=== PATIENT | female | born 1990 | race Caucasian/White ===

== ENCOUNTER → 2016-06-18 11:05 | Outpatient (CLI) | payer OTHER ==
[~2016-06-18 11:05] MED LIST: PRENATAL COMPLE1 TAB PO; ZOVIRAX400 MG
== END | disposition home or self-care (01) ==
LOC: D.US 11:05
DX: R60.0 Localized edema (principal)

== ENCOUNTER → 2016-06-25 21:22 | Outpatient (CLI) | payer OTHER ==
[2016-06-25 21:41] LABS: APPEARANCE CLEAR (CLEAR); BILIRUBIN NEGATIVE (NEGATIVE); COLOR YELLOW (YELLOW); GLUCOSE NEGATIVE (NEGATIVE); KETONE NEGATIVE (NEGATIVE); LEUKOCYTE ESTERASE NEGATIVE (NEGATIVE); NITRITE NEGATIVE (NEGATIVE); PROTEIN NEGATIVE (NEGATIVE); UROBILINOGEN NORMAL (NORMAL)
== END | disposition home or self-care (01) ==
LOC: D.LDO 21:22
PROVIDERS: Obstetrics & Gynecology
DX: Z34.83 Encounter for supervision of other normal pregnancy, third trimester (principal); Z3A.31 31 weeks gestation of pregnancy

== ENCOUNTER 2016-08-17 05:11 | Inpatient (IN) | payer OTHER ==
[2016-08-17] VITALS (13 sets, daily range): BP systolic 105–126; BP diastolic 57–69; Ht 139.7 cm; Wt 67.6 kg
[~2016-08-17] VITALS: Ht 139.7 cm; Wt 67.6 kg
--- NOTE | ~2016-08-17 | OP ---
PATIENT NAME: SOUTH OLIVARES MEDICAL RECORD: [id number] :89 LOCATION[facility]78 ADMISSION DATE:08/17/16 SURGEON: FRANCISCO JAVIER TAMAYO MD DATE OF OPERATION: 08/17/2016 PREOPERATIVE DIAGNOSES: 1. History of herpes simplex genital infection. 2. The patient desires elective . POSTOPERATIVE DIAGNOSES: 1. History of herpes simplex genital infection. 2. The patient desires elective . PROCEDURE: A primary low transverse section with vacuum assist. SURGEON: Francisco Javier Tamayo MD ESTIMATED BLOOD LOSS: 1200 cc. INTRAVENOUS FLUIDS: Per anesthesia records. SPECIMENS: Placenta and cord for gases. FINDINGS: 1. Viable infant, Apgars 8 and 8. 2. Placenta delivered manually intact, 3-vessel cord. 3. Grossly normal adnexa bilaterally. PROCEDURE IN DETAIL: The patient was taken to the operating room where spinal anesthesia was achieved without difficulty. The patient was then prepped and draped in normal sterile fashion in the dorsal supine position. A Tomas catheter had been placed and was flowing freely and SCDs were on and functioning normally. The patient was prepped and draped and a Pfannenstiel skin incision was made, extended downward to the underlying subcutaneous fat to the level of the fascia, which was then excised in the midline and extended bilaterally using the Alfonso scissors. The superior and inferior aspects of the fascial incision were grasped with Jesus clamps times 2, tented upward, and sharply dissected from the underlying rectus muscle using the Alfonso scissors and Bovie cautery. At this point, the peritoneum was entered at the superior aspect of the incision using the Metzenbaum scissors. Dissection of the pyramidalis muscle was performed in the midline using the Metzenbaum scissors and the peritoneum was excised bilaterally using the Metzenbaum scissors. A bladder blade was placed into the pelvis and a low transverse incision was made. head was found to be unstable lie. The Kiwi vacuum was attempted to be placed on the occiput; however, inadequate seal was noted due to the amount of fluid on the field. At this point, the external vacuum was then used and placed in the left occiput as was the only portion of the head reachable. Correction of the head flexion was performed and then delivery of the head was performed without traction on the neck. The vacuum was then removed and the infant was delivered atraumatically. Infant was bulb suctioned upon delivery. Cord was clamped times 2, cut, and handed to the awaiting nursery team. Cord was obtained for gases, placenta was removed manually and placenta exteriorized, cleared of all clots and debris and vigorously massaged until good uterine tone was noted. The uterine incision was repaired with 0 loop PDS times 2 with good hemostasis noted. The posterior cul-de-sac was then thoroughly irrigated and OPERATIVE REPORT [id number] [facility] DAY uterus replaced into the pelvis. Anterior cul-de-sac was again irrigated and the uterine incision was found to be hemostatic. Counts were correct times 2. The fascia was then repaired with 0 loop PDS times 1 and the skin repaired in a running subcutaneous fashion using 3-0 Monocryl and Dermabond. The patient tolerated the procedure well, transferred to postanesthesia recovery stable without incident. TRANSINT:[id number] Voice Confirmation ID: [id number] DOCUMENT ID: [id number] FRANCISCO JAVIER TAMAYO MD CC: [id number] DICTATION DATE: 08/17/16837 MOBILE PAINT SPECIALIST: 08/17/16 0900 ADM IN [facility] [address] [place] [address]
[2016-08-17 06:25] LABS: HEMATOCRIT 36.9 % (36.0-48.0); HEMOGLOBIN 12.7 g/dL (12-16); MCH 31.2 pg (26.0-34.0); MCHC 34.4 g/dL (31.0-37.0); MCV 90.7 fL (80.0-100.0); MEAN PLATELET VOLUME 12.4 fL (7.4-10.4); RBC 4.07 10x6/uL (4.00-5.40); RDW 13.1 % (11.5-14.5); WBC 9.8 10x3/uL (4.8-10.8)
[2016-08-17 06:49] LABS: APPEARANCE CLEAR (CLEAR); BILIRUBIN NEGATIVE (NEGATIVE); COLOR YELLOW (YELLOW); GLUCOSE NEGATIVE (NEGATIVE); KETONE NEGATIVE (NEGATIVE); LEUKOCYTE ESTERASE TRACE (NEGATIVE); NITRITE NEGATIVE (NEGATIVE); PROTEIN NEGATIVE (NEGATIVE); SPECIFIC GRAVITY 1.015 (1.005-1.020); UROBILINOGEN NORMAL (NORMAL)
[2016-08-17 06:50] LABS: BACTERIA MODERATE /hpf (NONE SEEN); EPITHELIAL CELLS 0-5 /hpf (0-5); MUCUS <1+ /lpf (NONE SEEN); WHITE CELLS - URINE 0-5 /hpf (0-5)
--- NOTE | 2016-08-17 08:12 | NUR ---
BABY BORN AT 0752
--- NOTE | 2016-08-17 08:47 | NUR ---
FUNDUS MIDLINE, FIRM AT UMBILICUS. MINIMAL LOCHIA.
--- NOTE | 2016-08-17 09:00 | NUR ---
to room 1278 via bed from . awake and alert- verbal responses appro to questions. no o2 in use. iv of 1000cc ns with 20 units pitocin at 125cc/hr per pump. multiple drum sander dilaudid setup per orders and pt instructed on use per dolly tinsley rn. fundus u1/firm. scant lochia noted on pad- scant lochia with massage. abd dressing cd&i. solis cath with 200cc urine- clear yellow. unable to move legs about yet. scd's placed. ice cap to abd.
--- NOTE | 2016-08-17 09:24 | NUR ---
using sales and leasing agent as needed. co cramping -toradol 30mg iv slowly given. dr barfield in room talking with pt.
--- NOTE | 2016-08-17 10:01 | NUR ---
awake- using cell phone. states that pain is better after toradol given. fundus u1/firm. small lochia notede on pad- pad changed. no clots.
--- NOTE | 2016-08-17 10:30 | NUR ---
VS DONE. FUNDUS U1/FIRM. SMALL LOCHIA NOTED ON PAD- PAD CHANGED. INCENTIVE BHUPINDER USED. ENCOURAGED TO COUGH AND DEEP BREATH. PT TILTED TO RT SIDE- PROPPED WITH PILLOWS.
--- NOTE | 2016-08-17 11:40 | NUR ---
resting on rt side. fundus u1/firm. scant lochia noted on pad no clots.
--- NOTE | 2016-08-17 11:54 | NUR ---
clear liq diet served.
--- NOTE | 2016-08-17 13:15 | NUR ---
sharon care done. fundus uu/firm. small lochia. pt talking with visitor. position changed to lt side.
[2016-08-17 13:53] LABS: BASOPHILS 0.1 % (0-2); EOSINOPHILS 0.6 % (0-7); HEMATOCRIT 30.9 % (36.0-48.0); HEMOGLOBIN 10.6 g/dL (12-16); IMMATURE GRANULOCYTES 0.3 % (0-5); LYMPHOCYTES 10.9 % (15-50); MCH 31.6 pg (26.0-34.0); MCHC 34.3 g/dL (31.0-37.0); MCV 92.2 fL (80.0-100.0); MEAN PLATELET VOLUME 11.9 fL (7.4-10.4); MONOCYTES 6.9 % (2-11); NEUTROPHILS 81.2 % (40-80); PLATELET COUNT 148 10x3/uL (130-400); RBC 3.35 10x6/uL (4.00-5.40); RDW 13.4 % (11.5-14.5)
[2016-08-17 13:56] LABS: WBC 14.6 10x3/uL (4.8-10.8)
--- NOTE | 2016-08-17 15:20 | NUR ---
pt rings call light. rates pain an 8 on scale of 0-10. requesting medication that she got this morning. pt states she is using geography head also. med given. fundus u2/firm. small lochia noted on pad- no clots. ice cap replaced . med given.
--- NOTE | 2016-08-17 15:31 | NUR ---
baby in room with nursery nurse.
--- NOTE | 2016-08-17 17:28 | NUR ---
SITTING UP IN BED TALKING WITH VISITORS. SCANT LOCHIA NOTED ON PAD. STATES THAT PAIN IS BETTER NOW BUT RATES A 6 ON SCALE OF 0-10.
--- NOTE | 2016-08-17 18:31 | NUR ---
SITTING UP IN BED HOLDING - BABY AT BREAST. SMALL LOCHIA NOTED ON PADS. DENIES NEEDS.
--- NOTE | 2016-08-17 18:55 | NUR ---
REPORT TO PM SHIFT.
--- NOTE | 2016-08-17 19:30 | NUR ---
Pt awake and alert sitting upright in bed holding . Reports pain at 6/10. Bolus dose prn BEEF SPLITTER dose administered as ordered. See BEEF SPLITTER record. IV infusing without difficutly. Solis cath in place and draining. Yellow urine noted in solis bag. Fundus firm and midline 1FB below umbillicus. Scant lochia noted. Sherry pad changed. SCDs in place. Pt moving all extremeties without difficulty. Encouraged use of IS and to reposition frequently. Pt verbalizes understanding and agrees to do so. Call light in reach. Bed low. SR upx2. No other needs voiced at this time.
--- NOTE | 2016-08-17 20:27 | NUR ---
DR. LEON ON UNIT TO SEE ANOTHER PT. WHILE HERE ASKED IF PT MAY HAVE CONROY AND IV DC'D AT [address] LEON STATES YES.
--- NOTE | 2016-08-17 21:04 | NUR ---
PT REQUESTING PRN PAIN MEDICATION TORADOL FOR BREAKTHROUGH PAIN. SEE EMAR FOR PNEUMATIC RIVETER. FRESH ICE WATER PROVIDED. DENIES ANY OTHER NEEDS OR CONCERNS.
--- NOTE | 2016-08-17 22:30 | NUR ---
Pt using IS.
--- NOTE | 2016-08-17 22:30 | NUR ---
IVF DC'D. IV SALINE LOCKED. CONROY CATH DC'D WITH TIP INTACT. PT TOLERATED WELL. FUNDUS REMAINS FIRM AND MIDLINE 1 FB BELOW UMBILLICUS. SCANT LOCHIA NOTED. APPRX 400 ML YELLOW URINE NOTED IN CONROY BAG PRIOR TO DC. CHANGE IN PAIN MEDICATION DISCUSSED WITH PT. PT VERBALIZES UNDERSTANDING. NO QUESTIONS VOICED.
[2016-08-18 00:05] VITALS: BP 120/70
--- NOTE | 2016-08-18 00:11 | NUR ---
Pt assisted up to side of bed in sitting position. Ambulated to bathroom with slow steady gait with nurse at side. Voided 600 ml clear yellow urine without difficulty. Sharon care performed. Given/explained mesh panties and sharon pads. Pt washed hands and ambulated back to bed. Underpads on bed changed while pt in bathroom. Bed low. SR up x2. Call light in reach. Instructed to call nurse for assistance with getting OOB to void. Pt verbalizes understanding.
--- NOTE | 2016-08-18 00:15 | NUR ---
pt using IS
--- NOTE | 2016-08-18 01:00 | NUR ---
Pt resting with eyes closed. Call light in reach.
--- NOTE | 2016-08-18 03:06 | NUR ---
Pt requesting prn pain med. see emar for medical record transcriber. Denies any other needs at this time. Holding infant in arms.
--- NOTE | 2016-08-18 04:15 | NUR ---
Pt assisted up to bathroom with slow steady gait with nurse at side. Voided 900ml clear urine without difficulty. Scant lochia noted. Sherry pad changed and pt ambulated back into bed. NB handed to pt. Call light in reach. Bed low. SR upx2. NO other needs voiced.
[2016-08-18 05:59] LABS: BASOPHILS 0.2 % (0-2); EOSINOPHILS 1.6 % (0-7); HEMATOCRIT 29.6 % (36.0-48.0); HEMOGLOBIN 9.8 g/dL (12-16); IMMATURE GRANULOCYTES 0.2 % (0-5); LYMPHOCYTES 22.1 % (15-50); MCHC 33.1 g/dL (31.0-37.0); MCV 93.7 fL (80.0-100.0); MEAN PLATELET VOLUME 12.3 fL (7.4-10.4); MONOCYTES 6.9 % (2-11); PLATELET COUNT 146 10x3/uL (130-400); RBC 3.16 10x6/uL (4.00-5.40); RDW 13.4 % (11.5-14.5)
[2016-08-18 06:03] LABS: WBC 8.7 10x3/uL (4.8-10.8)
[2016-08-18 06:15] VITALS: BP 99/60
--- NOTE | 2016-08-18 06:15 | NUR ---
Pt sitting up in bed . Asking for pain medication when it is due. Lochia remains scant. Fundus firm and midline 2FB below umbillicus. No other issues voiced. Call light in reach. Bed low. SR upx2.
--- NOTE | 2016-08-18 06:49 | NUR ---
Pt reports passing gas now. Requesting prn pain med. See EMAR for medical field representative. Holding infant in arms. Call light in reach. Bed low. SR upx2. No other needs voiced.
[2016-08-18 07:25] LABS: RAPID PLASMA REAGIN Non Reactive (Non Reactive)
[2016-08-18 07:30] VITALS: BP 119/63
--- NOTE | 2016-08-18 07:30 | NUR ---
Upon entering room for am assessment pt is awake, sitting up in bed with regular diet, talking on phone. When questioned about pain she rates at a 5/10 but does explain that cramping is slowly getting better since pain med this am. Bikini incision clean and dry, bandage has been removed per md. Saline lock to right forearm, patent without complaints of tenderness and flushes easily with 5ml NS. Pt denies any clots with voids and states discharge is less than her periods at this time. Encouraged to amb in room, to nursery or in halls and call if assistance is needed. Questions answered about shower and states understanding that she can do this at any time, just call nurse when ready so that extra towels can be provided and linens on bed changed. Side rails up x 2 with phone and call light in reach.
--- NOTE | 2016-08-18 09:40 | NUR ---
Chavo Arenas 08/[birth year]/16 S: Patient states this is her 2nd baby, first . States she is sore, someone told her the next day is usually easier with walking. Her oldest daughter is 6 and she nursed her for 2 years. O: Patient lying in bed, lights dim easily awaken when I walked in room. Congratulated on delivery. takes time and patience in the beginning. Breastfed babies should feed on demand, explained feeding cues, when shows feeding cues allow to be placed to the breast for every feeding. This will help with establishing your milk supply. Explained breastmilk composition, for infant first feeding, baby only needed one teaspoon. Your colostrum will increase by volume daily to meet infant needs. Supply and demand what infant takes out, your body will make more of. Provided handouts and explained on benefits on skin to skin, feeding cues, waking a sleeping baby, positions, engorgement, hand expressing, and what to expect the first week. Encouraged to continue to latch infant for every feeding, please ask for help if needed with latching . Explained how to hold for feeding, turn tummy to tummy, nose opposite of nipple, gently support head, and allow infant to self-latch. Asked if she is experiencing any soreness with her nipples, client states no, they feel fine. Nursery nurse brought in room and handed patient . Asked if any questions or concerns, client declined, will follow up. A: Client appears confident with . P: Continue to support exclusively . Alyssa Smith, CLC
--- NOTE | 2016-08-18 10:30 | NUR ---
Pt sitting up in bed holding with her daughter also at her side. Rates pain on right side of incision at 7/10, c/o burning, states understanding was complain with sections. Pain med given as charted on emar. Also provided pt with small ice pack to assist in pain relief. Call light in reach with side rails up x 2.
--- NOTE | 2016-08-18 13:15 | NUR ---
PT RINGS CALL LIGHT REQUESTING A MOTRIN. MOTRIN 600MG PO ADMINISTERED. SEE EMAR. PT REPORTS PAIN 8/10 AND DESCRIBES PRESSURE AND CRAMPING. ICE WATER SERVED. PT ENOURAGED TO GET UP AND VOID TO HELP ALLEVIATE INCISIONAL PAIN. NO FURTHER NEEDS VOICED. FAMILY IN ROOM WITH PT TO ASSIST HER.
--- NOTE | 2016-08-18 14:56 | NUR ---
towels providied for shower. bed linens changed while pt is taking her shower. family member remains in room and pt states understanding of how to call for nurse if one is needed during her shower.
--- NOTE | 2016-08-18 15:30 | NUR ---
PT IS OUT OF SHOWER AND DRESSED WITH HER OWN CLOTHS, SHOWN HOW TO COVER INCISION SITE WITH VICTORIA PAD. RATES PAIN AT 8/10, NORCO 10/325MG GIVEN CHARTED ON EMAR. PT ENCOURAGED TO TRY AND NAP, SHE IS ABLE TO POSITION SELF FOR COMFORT, LIGHTS TURNED OUT. NURSERY NOTIFIED PER PT REQUEST THAT SHE IS GOING TO TRY AND SLEEP BUT WAKE FOR INFANTS NEXT FEEDING.
--- NOTE | 2016-08-18 16:45 | NUR ---
Pt resting on her left side with eyes closed and resp even, left undisturbed at this time. side rails up and call light in reach.
--- NOTE | 2016-08-18 19:00 | NUR ---
Pt sitting up on side of bed , denies needs at this. Call light in reach.
--- NOTE | 2016-08-18 19:19 | NUR ---
NURSE IN ROOM TO PERFORM ASSESSMENT. PT REPORTING PAIN 8/10 IMMEDIATELY. PRN MEDICATIONS ADMINISTERED ORDERED. SEE EMAR. FRESH ICE WATER GIVEN. PT SITTING UP IN BED HOLDING INFANT. REPORTS VAG BLEEDING SCANT TODAY. DENIES CLOTS. FUDNUS FIRM AND MDLINE 2 FB BELOW UBMILLICUS. ABD INCISION WELL APPROXIMATED AND WITHOUT S/S INFECTION. CARE OF INCISION DISCUSSED WITH PT. ENCOURAGED PT TO AMBULATE WHEN NB GOES TO [facility]. PT REPORTS SHE IS PASSING GAS. BS ACTIVE X4 QUADS. DENIES N/V. REPORTS GOOD APPETITE. NO OTHER ISSUES VOICED. DENIES ANY OTHER NEEDS. CALL LIGHT IN REACH. BED LOW. SR UPX2.
[2016-08-18 19:26] VITALS: BP 119/66
--- NOTE | 2016-08-18 20:10 | NUR ---
Pt sitting up in bed. Denies any needs or concerns. Continues to report voiding without difficulty and scant lochia without clots. Call light in reach. Bed low. SR upx2.
--- NOTE | 2016-08-18 22:30 | NUR ---
IV to R FA dc'd with tip intact. Bandage and pressure to site. Pt tolerated well.
--- NOTE | 2016-08-19 00:45 | NUR ---
Pt resting in bed with eyes closed. Fresh ice water provided. Call light in reach. Bed low. SR upx2.
--- NOTE | 2016-08-19 02:30 | NUR ---
Pt resting. No needs voiced. C/L in reach.
--- NOTE | 2016-08-19 04:12 | NUR ---
Pt requesting prn pain med. See EMAR for professor of family medicine. Sitting up in bed holding . sleeping. denies any needs. Asked if nurse could take NB to nsy so pt can sleep. Pt agrees. C/L in reach. Bed low. SR upx2. NB to NSY.
--- NOTE | 2016-08-19 04:15 | NUR ---
Pt reports voiding without difficulty. Scant lochia. Fundus firm and midline 2 FB below umbillicus. Denies clots.
[2016-08-19 04:30] VITALS: BP 97/54
--- NOTE | 2016-08-19 06:04 | NUR ---
Pt resting with eyes closed. No needs observed. C/L in reach.
[2016-08-19 09:00] VITALS: BP 100/65
--- NOTE | 2016-08-19 09:00 | NUR ---
Am assessment completed as charted flowsheet along with vital signs. Pt rates pain at incision site at 8/10 and request pain medication. Incision is clean and dry pt demonstates understanding of incision care by having covered with sharon pad. scant bleeding noted and she denies clots with voids. Questions answered about discharge and she states understanding to notify nursery first when she is ready to begin process. Infant in room for feeding, side rails up x 2 with call light in reach. Pt mother also at bedside.
--- NOTE | 2016-08-19 09:15 | NUR ---
Pain med given as charted on emar.
--- NOTE | 2016-08-19 09:43 | NUR ---
LE@ 9:00 Chavo Dagoberto 08/[birth year] S: Patient states things are going great, just enjoying visiting with family, baby is going with , she has been feeding on demand. O: Patient sitting up in bed, visiting with family member in room, who is holding . Praised for . Encouraged to continue to feed infant when she shows signs of feeding cues, this will help with establishing her milk supply. Provided and handout on what to expect the first week. does take time and patience, just take things one day at a time, provided work cell number, please call with any questions or concerns. Asked if she has any questions, patient declined. A: Patient appears confident with . P: Continue to support exclusively Alyssa Smith, CLC
--- NOTE | 2016-08-19 10:30 | NUR ---
Pt mother out to desk with questions about discharge, states that her daughter is not yet ready, but will call nursery to let them know to get infant ready.
[2016-08-19] MEDS ORDERED: HYDROCODONE-APA1 TAB PO (12:14)
[2016-08-19] MEDS ORDERED: IBUPROFEN600 MG PO (12:15)
--- NOTE | 2016-08-19 12:40 | NUR ---
Pt calls for nurse states that she is ready for discharge instructions. This rn to bedside with verbal and written instructions given with written scripts provided for [place] 10/325mg and Motrin 600mg. Pt states her understanding to all info given along with s/s of infection to be aware of. Ask for pain med now due to cramping that she rates at 7/10. Also states that she is going to breastfeed before leaving. Pain med given as charted on emar.
--- NOTE | 2016-08-19 13:12 | NUR ---
PT RINGS CALL LIGHT REQUEST PAIN MEDICATION. NORCO 10/325MG ONE TAB TAKEN TO PT ROOM AND ADMINISTERED. SEE EMAR. PT DENIES FURTHER NEEDS AT THIS TIME.
--- NOTE | 2016-08-19 14:00 | NUR ---
Pt calls that her ride is here and she is ready for wheelchair, taken out by hospital volunteer. Pt and infant home by private car with family member.
== END 2016-08-19 14:00 | disposition home or self-care (01) | DRG 766 ==
LOC: D.LD 05:11 → D.SDCHOLD 05:11 → D.LD 05:25
PROVIDERS: ADMIT Obstetrics & Gynecology
PROC: 10D00Z1 Extraction of Products of Conception, Low, Open Approach (ICD-10-PCS; principal; 2016-08-17 07:30)
DX: O98.32 Other infections with a predominantly sexual mode of transmission complicating childbirth (principal); Z37.0 Single live birth; A60.00 Herpesviral infection of urogenital system, unspecified; Z3A.39 39 weeks gestation of pregnancy

== ENCOUNTER 2017-06-24 22:25 | Emergency (ER) | payer BC, OTHER ==
[2016-08-17 05:45] VITALS: BMI 34.7
[~2017-06-24 22:25] MED LIST changes: +HYDROCODONE-APA1 TAB PO; +IBUPROFEN600 MG PO
[2017-06-24 23:51] LABS: BASOPHILS 0.1 % (0-2); EOSINOPHILS 0.5 % (0-7); HEMATOCRIT 46.9 % (36.0-48.0); HEMOGLOBIN 16.7 g/dL (12-16); IMMATURE GRANULOCYTES 0.3 % (0-5); MCH 31.4 pg (26.0-34.0); MCHC 35.6 g/dL (31.0-37.0); MCV 88.2 fL (80.0-100.0); MONOCYTES 3.8 % (2-11); NEUTROPHILS 92.3 % (40-80); RBC 5.32 10x6/uL (4.00-5.40); RDW 12.8 % (11.5-14.5); WBC 14.6 10x3/uL (4.8-10.8)
[2017-06-24 23:54] LABS: PLATELET COUNT 201 10x3/uL (130-400)
[2017-06-25 00:10] LABS: ALBUMIN 4.8 g/dL (3.4-5.0); ALKALINE PHOSPHATASE 61 U/L (46-116); ALT (SGPT) 31 U/L (10-68); CALC OSMOLALITY 277 mosm/kg (275-300); CALCIUM 9.6 mg/dL (8.5-10.1); CARBON DIOXIDE 20.9 mmol/L (21.0-32.0); CHLORIDE - SERUM 105 mmol/L (98-107); CREATININE - SERUM 0.8 mg/dL (0.6-1.3); GLUCOSE 105 mg/dL (74-106); POTASSIUM - SERUM 4.2 mmol/L (3.5-5.1); PROTEIN - SERUM 8.9 g/dL (6.4-8.2); SODIUM 138 mmol/L (136-145); UREA NITROGEN 19 mg/dL (7-18); eGFR NON AFRICAN AMERICAN 90 mL/min (90-120)
== END 2017-06-25 01:09 | disposition home or self-care (01) ==
LOC: D.ER 22:25
PROVIDERS: Emergency Medicine
DX: K52.29 Other allergic and dietetic gastroenteritis and colitis (principal)

== ENCOUNTER 2017-09-08 22:37 | Emergency (ER) | payer BC, OTHER ==
[~2017-09-08] VITALS: Ht 139.7 cm; Wt 57.6 kg
[2017-09-08 23:55] VITALS: Ht 139.7 cm; Wt 57.6 kg
[2017-09-09 00:44] LABS: BASOPHILS 0.4 % (0-2); EOSINOPHILS 4.2 % (0-7); HEMATOCRIT 37.7 % (36.0-48.0); HEMOGLOBIN 13.2 g/dL (12-16); IMMATURE GRANULOCYTES 0.1 % (0-5); LYMPHOCYTES 40.9 % (15-50); MCV 88.5 fL (80.0-100.0); MEAN PLATELET VOLUME 11.2 fL (7.4-10.4); MONOCYTES 5.3 % (2-11); NEUTROPHILS 49.1 % (40-80); PLATELET COUNT 214 10x3/uL (130-400); RBC 4.26 10x6/uL (4.00-5.40); RDW 13.1 % (11.5-14.5); WBC 10.1 10x3/uL (4.8-10.8)
[2017-09-09 00:47] LABS: HCG SERUM NEGATIVE (NEGATIVE)
[2017-09-09 01:02] LABS: ALBUMIN 4.3 g/dL (3.4-5.0); ALKALINE PHOSPHATASE 55 U/L (46-116); ALT (SGPT) 25 U/L (10-68); CALC OSMOLALITY 281 mosm/kg (275-300); CALCIUM 9.5 mg/dL (8.5-10.1); CARBON DIOXIDE 26.3 mmol/L (21.0-32.0); CHLORIDE - SERUM 106 mmol/L (98-107); CREATININE - SERUM 0.6 mg/dL (0.6-1.3); GLUCOSE 95 mg/dL (74-106); LIPASE 140 U/L (73-393); PROTEIN - SERUM 7.8 g/dL (6.4-8.2); SODIUM 141 mmol/L (136-145); UREA NITROGEN 14 mg/dL (7-18); eGFR NON AFRICAN AMERICAN > 90 mL/min (90-120)
[2017-09-09 02:05] LABS: APPEARANCE CLEAR (CLEAR); BILIRUBIN NEGATIVE (NEGATIVE); COLOR YELLOW (YELLOW); GLUCOSE NEGATIVE (NEGATIVE); KETONE NEGATIVE (NEGATIVE); NITRITE NEGATIVE (NEGATIVE); PROTEIN NEGATIVE (NEGATIVE); UROBILINOGEN NORMAL (NORMAL)
[2017-09-09] MEDS ORDERED: VIBRAMYCIN 100100 MG PO (02:41)
[2017-09-09] MEDS ORDERED: DIFLUCAN150 MG PO (02:43)
[2017-09-09] MEDS ORDERED: DOXYCYCLINE HY100 M2 PO (02:44)
[2017-09-09 03:41] VITALS: BP 134/65
[2017-09-11 10:07] LABS: CHLAMYDIA TRACHOMATIS, NAA Negative (Negative)
== END 2017-09-09 03:42 | disposition home or self-care (01) ==
LOC: D.ER 22:37
PROVIDERS: Family Medicine
DX: A74.9 Chlamydial infection, unspecified (principal); B37.9 Candidiasis, unspecified; A54.9 Gonococcal infection, unspecified; R10.9 Unspecified abdominal pain

== ENCOUNTER 2017-12-27 10:16 | Emergency (ER) | payer BC, OTHER ==
[~2017-12-27] VITALS: Ht 162.6 cm; Wt 59.1 kg
[~2017-12-27 10:16] MED LIST changes: +DIFLUCAN150 MG PO; +DOXYCYCLINE HY100 M2 PO; +VIBRAMYCIN 100100 MG PO
[2017-12-27 10:21] VITALS: Ht 162.6 cm; Wt 59.1 kg
[2017-12-27 11:17] LABS: ALBUMIN 4.2 g/dL (3.4-5.0); ALKALINE PHOSPHATASE 60 U/L (46-116); ALT (SGPT) 31 U/L (10-68); BILIRUBIN - TOTAL 0.85 mg/dL (0.2-1.3); CALC OSMOLALITY 278 mosm/kg (275-300); CARBON DIOXIDE 28.4 mmol/L (21.0-32.0); CHLORIDE - SERUM 106 mmol/L (98-107); CREATININE - SERUM 0.5 mg/dL (0.6-1.3); GLUCOSE 90 mg/dL (74-106); POTASSIUM - SERUM 4.2 mmol/L (3.5-5.1); PROTEIN - SERUM 7.7 g/dL (6.4-8.2); SODIUM 141 mmol/L (136-145); UREA NITROGEN 8 mg/dL (7-18); eGFR NON AFRICAN AMERICAN > 90 mL/min (90-120)
[2017-12-27 11:21] LABS: APPEARANCE HAZY (CLEAR); BILIRUBIN NEGATIVE (NEGATIVE); COLOR YELLOW PINK (YELLOW); GLUCOSE NEGATIVE (NEGATIVE); KETONE NEGATIVE (NEGATIVE); NITRITE NEGATIVE (NEGATIVE); PROTEIN 1+ mg/dL (NEGATIVE); UROBILINOGEN NORMAL (NORMAL); WHITE CELLS - URINE 0-5 /hpf (0-5)
[2017-12-27 11:22] LABS: BACTERIA MODERATE /hpf (NONE SEEN); EPITHELIAL CELLS 0-5 /hpf (0-5); MUCUS <1+ /lpf (NONE SEEN); RED CELLS - URINE >50 /hpf (0-5)
[2017-12-27 11:23] LABS: HCG - QUANTITATIVE (MATERNAL) 893 mIU/mL
[2017-12-27 11:53] LABS: BASOPHILS 0.2 % (0-2); EOSINOPHILS 1.8 % (0-7); HEMATOCRIT 36.5 % (36.0-48.0); HEMOGLOBIN 12.7 g/dL (12-16); IMMATURE GRANULOCYTES 0.1 % (0-5); LYMPHOCYTES 22.1 % (15-50); MCHC 34.8 g/dL (31.0-37.0); MONOCYTES 5.6 % (2-11); NEUTROPHILS 70.2 % (40-80); PLATELET COUNT 236 10x3/uL (130-400); WBC 8.4 10x3/uL (4.8-10.8)
[2017-12-27] MEDS ORDERED: NORCO 5/325 TAB1 TAB PO (13:55)
[2017-12-27 14:15] VITALS: BP 119/73
== END 2017-12-27 14:16 | disposition home or self-care (01) ==
LOC: D.ER 10:16
PROVIDERS: Emergency Medicine
DX: O20.0 Threatened abortion (principal); Z3A.01 Less than 8 weeks gestation of pregnancy

== ENCOUNTER 2018-01-18 15:12 | Emergency (ER) | payer BC, OTHER ==
[~2018-01-18] VITALS: Ht 162.6 cm; Wt 58.6 kg
[~2018-01-18 15:12] MED LIST changes: +NORCO 5/325 TAB1 TAB PO
[2018-01-18 15:20] VITALS: Ht 162.6 cm; Wt 58.6 kg
[2018-01-18] MEDS ORDERED: METRONIDAZOLE70 GM VG (15:25)
[2018-01-18 16:00] LABS: APPEARANCE CLEAR (CLEAR); BILIRUBIN NEGATIVE (NEGATIVE); COLOR YELLOW (YELLOW); GLUCOSE NEGATIVE (NEGATIVE); KETONE NEGATIVE (NEGATIVE); NITRITE NEGATIVE (NEGATIVE); PH 7.5 (5.0-6.0); PROTEIN NEGATIVE (NEGATIVE); SPECIFIC GRAVITY 1.005 (1.005-1.020); UROBILINOGEN NORMAL (NORMAL)
[2018-01-18 16:01] LABS: HCG URINE NEGATIVE (NEGATIVE)
[2018-01-18 17:40] LABS: HCG SERUM NEGATIVE (NEGATIVE)
[2018-01-18] MEDS ORDERED: ROBAXIN500 MG PO (18:25)
[2018-01-18 20:19] VITALS: BP 130/73
== END 2018-01-18 20:19 | disposition home or self-care (01) ==
LOC: D.ER 15:12
PROVIDERS: Family Medicine
DX: S16.1XXA Strain of muscle, fascia and tendon at neck level, initial encounter (principal); V43.52XA Car driver injured in collision with other type car in traffic accident, initial encounter; Y93.89 Activity, other specified; Y92.410 Unspecified street and highway as the place of occurrence of the external cause; M54.6 Pain in thoracic spine

== ENCOUNTER → 2019-02-05 10:11 | Outpatient (CLI) | payer OTHER ==
[2018-01-18 15:20] VITALS: BMI 22.2
[~2019-02-05 10:11] MED LIST changes: +METRONIDAZOLE70 GM VG; +ROBAXIN500 MG PO
== END | disposition home or self-care (01) ==
LOC: D.LDO 10:11
PROVIDERS: ATTEND Obstetrics & Gynecology
DX: O62.4 Hypertonic, incoordinate, and prolonged uterine contractions (principal); Z3A.00 Weeks of gestation of pregnancy not specified

== ENCOUNTER 2019-03-05 10:41 | Outpatient (CLI) | payer OTHER ==
[2018-01-18 15:20] VITALS: BMI 22.2
[2019-03-05 13:27] LABS: APPEARANCE HAZY (CLEAR); BACTERIA MODERATE /hpf (NEGATIVE); BILIRUBIN NEGATIVE (NEGATIVE); COLOR YELLOW (YELLOW); EPITHELIAL CELLS 0-5 /hpf (0-5); GLUCOSE NEGATIVE (NEGATIVE); KETONE NEGATIVE (NEGATIVE); NITRITE NEGATIVE (NEGATIVE); PROTEIN NEGATIVE (NEGATIVE); RED CELLS - URINE 0-5 /hpf (0-5); UROBILINOGEN NORMAL (NORMAL); WHITE CELLS - URINE 0-5 /hpf (NEGATIVE); YEAST <1+ /hpf (NONE SEEN)
== END 2019-03-06 08:15 | disposition home or self-care (01) ==
LOC: D.LDO 10:41 → D.LD 20:35 → D.LDO 03-06 08:15
PROVIDERS: ATTEND Obstetrics & Gynecology
DX: O26.839 Pregnancy related renal disease, unspecified trimester (principal); Z3A.33 33 weeks gestation of pregnancy; R52 Pain, unspecified

== ENCOUNTER → 2019-03-06 14:12 | Outpatient (CLI) | payer OTHER ==
[2018-01-18 15:20] VITALS: BMI 22.2
== END | disposition home or self-care (01) ==
LOC: D.LDO 14:12
PROVIDERS: ATTEND Obstetrics & Gynecology
DX: O26.899 Other specified pregnancy related conditions, unspecified trimester (principal); Z3A.00 Weeks of gestation of pregnancy not specified

== ENCOUNTER → 2019-03-19 17:18 | Outpatient (CLI) | payer OTHER ==
[2018-01-18 15:20] VITALS: BMI 22.2
== END | disposition home or self-care (01) ==
LOC: D.LDO 17:18
PROVIDERS: ATTEND Obstetrics & Gynecology
DX: O26.899 Other specified pregnancy related conditions, unspecified trimester (principal); R03.0 Elevated blood-pressure reading, without diagnosis of hypertension

== ENCOUNTER 2019-04-02 14:58 | Inpatient (IN) | payer OTHER ==
[~2019-04-02] VITALS: Ht 162.6 cm; Wt 75.7 kg
[2019-04-02 15:38] LABS: APPEARANCE CLEAR (CLEAR); COLOR YELLOW (YELLOW)
[2019-04-02 15:39] LABS: BILIRUBIN NEGATIVE (NEGATIVE); GLUCOSE NEGATIVE (NEGATIVE); KETONE NEGATIVE (NEGATIVE); NITRITE NEGATIVE (NEGATIVE); PROTEIN NEGATIVE (NEGATIVE); UROBILINOGEN NORMAL (NORMAL)
[2019-04-02 16:29] VITALS: BP 131/73; Ht 162.6 cm; Wt 75.7 kg
[2019-04-02 17:03] LABS: HEMATOCRIT 35.4 % (36.0-48.0); HEMOGLOBIN 12.1 g/dL (12-16); MCH 30.5 pg (26.0-34.0); MCHC 34.2 g/dL (31.0-37.0); MCV 89.2 fL (80.0-100.0); MEAN PLATELET VOLUME 11.2 fL (7.4-10.4); RBC 3.97 10x6/uL (4.00-5.40); RDW 13.3 % (11.5-14.5); WBC 9.9 10x3/uL (4.8-10.8)
--- NOTE | 2019-04-02 19:44 | NUR ---
BABY DELIVERED @ 1950 PLACENTA DELIVERED @ 1950
--- NOTE | 2019-04-02 21:04 | NUR ---
2038 RECEIVED PATIENT AWAK AND ALERT. FUNDUS MIDLINE SLIGHTLY BOGGY. FUNDAL MASSAGE PERFORMED. FUNDUS FIRMING UP. FUNDAL HEIGHT 2 FINGERS BREATH BELOW UMBILICUS. SMALL CLOTS EXITING VAGINA UPON MASSAGE.
--- NOTE | 2019-04-02 21:08 | NUR ---
2107 FUNDUS FIRM. NO CLOTS EXPELLED DURING FUNDAL MASSAGE.
[2019-04-02 21:25] VITALS: BP 111/53
--- NOTE | 2019-04-02 21:25 | NUR ---
PT RECEIVED TO ROOM 1257 VIA BED. REPORT RECEIVED FROM OR NURSE. PT AWAKE, ALERT, AND ORIENTED. POC DISCUSSDED WITH PT AND SPOUSE. PT STABLE AND DENIES ANY C/O PAIN AT THIS TIME. PT INFANT. WILL ALLOW PT TO CONTINUE TO FEED AND WILL COME BACK WHEN PT IS THROUGH TO DO ASSESSMENT AND VS. NO REQUEST MADE. CALL LIGHT WITHIN PTS REACH. SIDERAILS UP X2. BED IN LOW POSITION.
[2019-04-02 22:35] VITALS: BP 104/55
--- NOTE | 2019-04-02 22:35 | NUR ---
PT RESTING IN BED. ASSESSMENT COMPLETE PER FLOWSHEET. VSS. PT DENIES ANY C/O PAIN AT THIS TIME.IV TO L WRIST INFUSING NS WITH 20 UNITS PIT. NO REDNESS OR TENDERNESS NOTED TO SITE. BBS CLEAR. ABDOMEN SOFT. ACTIVE BS X4 QUADRANTS. LOW TRANSVERSE ABDOMINAL INCISION C/D/I WITH DERMABOND. FUNDUS FIRM AT UMBILICUS. SMALL AMOUNT OF LOCHIA NOTED. FC DRAINING TO GRAVITY WITH CLEAR YELLOW URINE NOTED IN BAG. FC SECURED TO LEG WITH CATHSECURE. PERICARE DONE AND PERIPAD CHANGED. SCDS ON BLE AND WORKING PROPERLY. QUESTIONS ANSWERED. pT INSTRUCTED TO NOTIFY NURSE WITH ANY PROBLEMS, NEEDS, OR CONCERNS. VERBALIZD UNDERSTANDING. CALL LIGHT WITHIN PTS REACH. SR UP X2. BED IN LOW POSITION.
--- NOTE | 2019-04-02 23:18 | NUR ---
INFORMED NOHEMI IN LAB THAT PT HAS AN ORDER FOR A CBC TO BE DRAWN AT 0000.
[2019-04-03] VITALS (7 sets, daily range): BP systolic 100–111; BP diastolic 50–66
--- NOTE | 2019-04-03 00:08 | NUR ---
PT RESTING IN BED. PT C/O INCISIONAL PAIN. MORPHINE 2MG GIVEN SIVP. fUNDUS FIRM AND AT UMBILICUS. PERIPAD CHANGED WITH SMALL AMOUNT OF LOCHIA NOTED. FC EMPTIED WITH 500ML OF YELLOW URINE EMPTIED FROM CONROY BAG. NO OTHER REQUEST MADE. INSTRUCTED PT TO NOTIFY NURSE IF PAIN MEDICATION NOT EFFECTIVE OR WITH ANY OTHER PROBLEMS, NEEDS, OR CONCERNS. VERBALIZED UNDERSTANDING. CALL LIGHT WITHIN PTS REACH. SR UP X2. BED IN LOW POSTION.
[2019-04-03 00:46] LABS: BASOPHILS 0.1 % (0-2); EOSINOPHILS 1.1 % (0-7); HEMATOCRIT 30.6 % (36.0-48.0); HEMOGLOBIN 10.3 g/dL (12-16); IMMATURE GRANULOCYTES 0.4 % (0-5); LYMPHOCYTES 18.5 % (15-50); MCH 29.9 pg (26.0-34.0); MCHC 33.7 g/dL (31.0-37.0); MEAN PLATELET VOLUME 10.8 fL (7.4-10.4); MONOCYTES 5.7 % (2-11); NEUTROPHILS 74.2 % (40-80); PLATELET COUNT 175 10x3/uL (130-400); RBC 3.44 10x6/uL (4.00-5.40); RDW 13.5 % (11.5-14.5)
[2019-04-03 00:49] LABS: WBC 12.8 10x3/uL (4.8-10.8)
--- NOTE | 2019-04-03 01:00 | NUR ---
PT RESTING IN BED. PT REPORTS HER PAIN IS 2/10. NO REQUEST MADE. INSTRUCTED PT TO NOTIFY NURSE WITH ANY PROBLEMS, NEEDS, OR CONCERNS. VERBALIZED UNDERSTANDING. CALL LIGHT WITHIN PTS REACH. SR UP X2. BED IN LOW POSITION.
--- NOTE | 2019-04-03 03:08 | NUR ---
PT RESTING IN BED. SCHEDULED TORADOL GIVEN SIVP. NO REQUEST MADE. INSTRUCTED PT TO NOTIFY NURSE WITH ANY PROBLEMS, NEEDS, OR CONCERNS. VERBALIZED UNDERSTANDING. CALL LIGHT WITHINPTS REACH. SR UP X2. BED IN LOW POSITION.
--- NOTE | 2019-04-03 03:58 | NUR ---
PT RESTING IN BED. MORPHINE 4MG GIVEN SIVP. FUNDUS FIRM AT UMBILICUS. PERIPAD CHANGED WITH A SMALL AMOUNT OF LOCHIA NOTED. LOW TRANSVERSE ABDOMINAL INCISION C/D/I WITH DERMABOND. IV TO LEFT WRIST WITHOUT REDNESS OR TENDERNESS. FRESH ICE PACK PLACED TO ABDOMINAL INCISION. ICE CHIPS PROVIDED. INSTRUCTED PT TO NOTIFY NURSE WITH ANY PROBLEMS, NEEDS, OR CONCERNS. VERBALIZED UNDERSTANDING. BED IN LOW POSITION. SR UP X2. CALL LIGHT WITHIN PTS REACH.
--- NOTE | 2019-04-03 04:30 | NUR ---
PT RESTING INBED. PT REPORTS HER PAIN IS BETTER. NO REQUEST MADE. INSTRUCTED PT TO NOTIFY NURSE WITH ANY PROBLEMS, NEEDS,OR CONCERNS. VERBALIZED UNDERSTANDING. BED IN LOW POSITION. SR UP X2. CALL LIGHT WITHIN PTS REACH.
--- NOTE | 2019-04-03 06:20 | NUR ---
PT RESTING IN BED. PT C/O INCISIONAL PAIN. INFORMED PT THAT IT IS TO SOON FOR PAIN MEDICATION. ICE PACK PLACED TO INCISIONAL SITE FOR COMFORT. INSTRUCTED PT TO NOTIFY NURSE WITH ANY OTHER PROBLEMS, NEEDS, OR CONCERNS. VERBALIZED UNDERSTANDING. BED IN LOW POSITION. SR UP X2. CALL LIGHT WITHIN PTS REACH.
--- NOTE | 2019-04-03 07:15 | NUR ---
DR. DE DIOS IN ROOM ASSESSING PT. DR. DE DIOS GAVE VO MAY D/C PT CONROY, SALINE LOCK IV, PT MAY HAVE A REGULAR DIET, MAY NORMALIZE PT.
--- NOTE | 2019-04-03 07:44 | NUR ---
PT GIVEN IV PAIN MEDS SEE EMAR.
--- NOTE | 2019-04-03 07:47 | NUR ---
MARYCARMEN D/C AT THIS TIME. IV SALINE LOCKED. PT UP TO RR W/ STEADY GAIT. PT ABLE TO VOID W/O DIFFICULTY. PT BACK TO BED. PT ENCOURAGED TO CALL RN NEXT TIME UP FOR ASSISTANCE. ALSO ENCOURAGED PT TO GET OOB EVERY COUPLE HOURS & WALK TODAY. PT VOICED UNDERSTANDING.
--- NOTE | 2019-04-03 08:45 | NUR ---
toradol given iv at this time. see emar.
--- NOTE | 2019-04-03 09:30 | NUR ---
pt assisted up to rr again. pt able to void w/o difficulty 350ml. pt performed pericare.
--- NOTE | 2019-04-03 11:00 | NUR ---
pt sitting on side of bed in stable condition w/ no c/o at this time.
--- NOTE | 2019-04-03 11:04 | NUR ---
PHONE CALL MADE TO DR. DE DIOS TO REQUEST PO PAIN MEDICATION. TELEPHONE ORDER RECEIVED TO ADMINISTER PERCOCET 10 MG ONE PO Q4 HRS PRN FOR SEVERE PAIN, AND MAY HAVE PERCOCET 5 MG ONE PO Q 4HRS PRN FOR MODERATE PAIN, AND ADMINISTER MOTRIN 600 MG ONE PO Q 6 HRS FOR C/O PAIN. Hector HARRISON RN INFORMED.
--- NOTE | 2019-04-03 12:30 | NUR ---
pt given pain meds see emar. pt's vss. pt stated she did take a shower & has walked around room.
--- NOTE | 2019-04-03 13:15 | NUR ---
PT SITTING UP IN BED. STATES "PAIN IS MUCH BETTER." PT STATES SHE GOING TO TRY & REST AT THIS TIME.
--- NOTE | 2019-04-03 14:10 | NUR ---
PT AWAKE INFANT. PT W/ NO C/O AT THIS TIME.
--- NOTE | 2019-04-03 14:58 | NUR ---
SCHEDULED MOTRIN GIVEN SEE EMAR. PT SITTING UP A&A AT THIS TIME.
--- NOTE | 2019-04-03 15:45 | NUR ---
PT SITTING UP IN BED . PT STATES "MOTRIN HELPED TAKE THE EDGE OFF." PT VSS & NO C/O AT THIS TIME.
--- NOTE | 2019-04-03 16:45 | NUR ---
pt sitting up in bed a&a talking w/ visitor. pt w/ no c/o at this time.
--- NOTE | 2019-04-03 17:36 | NUR ---
pt c/o see emar for pain meds given.
--- NOTE | 2019-04-03 18:15 | NUR ---
pt sitting up a&a. pt states pain is much better now.
--- NOTE | 2019-04-03 21:15 | NUR ---
DROWSY. LYING IN RT TILT WITH HOB AT 15 DEGREES. BREATH SOUNDS CLEAR AND BOWEL SOUNDS AUDIBLE. REPORTS THAT SHE IS PASSING FLATUS. NO LOWER EXTREMITY EDEMA NOTED. REPORTS PAIN A 4 OF 10 ON PAIN SCORE AND REPORTS DISCOMFORT WHEN SHE MOVES. SALINE LOCK NOTED IN LT WRIST AREA. NO REDNESS NOR EDEMA NOTED AT IV SITE. ABD. INCISION CLEAN AND DRY. FUNDUS FIRM AND MIDLINE AT U/2. SCANT LOCHIA RUBRA NOTED ON PAD. ICE WATER PROVIDED TO PT. ASLEEP IN OPEN CRIB AT BEDSIDE. DENIES ANY NEEDS AT THIS TIME.
--- NOTE | 2019-04-03 22:15 | NUR ---
PT. LYING ON BACK WITH EYES CLOSED AND RESPIRATIONS UNLABORED. FOB AT BEDSIDE CHANGING DIAPER ON INFANT. PT. DOES NOT AROUSE.
--- NOTE | 2019-04-03 23:36 | NUR ---
PT. AT PRESENT. C/O INCISIONAL BURNING AND ABD. CRAMPING THAT SHE RATES A 7 OF 10 ON PAIN SCALE. FOB OUT OF ROOM AT PRESENT. VITAL SIGNS OBTAINED. SIDE RAILS UP X 2 AND CALL LIGHT WITHIN REACH.
--- NOTE | 2019-04-04 00:20 | NUR ---
CURRENTLY RETURNING FROM BATHROOM. GAIT STEADY. REPORTS PAIN IS A 4 OF 10 ON PAIN SCALE. ASLEEP BEING HELD BY FOB. PT. STATES PLANS TO SLEEP UNTIL NEXT FEEDING.
--- NOTE | 2019-04-04 02:15 | NUR ---
LYING ON BACK WITH EYES CLOSED. RESPIRATIONS UNLABORED. FOB LYING ON SOFA AND APPEARS TO BE READING ON TABLET. PRESENTLY IN NBN.
--- NOTE | 2019-04-04 03:23 | NUR ---
PT MEDICATED FOR MOTRIN AT THIS TIME. PAIN 09/27. L JAMEL MÉNDEZ
--- NOTE | 2019-04-04 03:55 | NUR ---
INFANT TO ROOM FOR PER NBN NURSE. RATES PAIN A 3 OF 10 ON PAIN SCALE.
--- NOTE | 2019-04-04 06:05 | NUR ---
WALKING AROUND ROOM WITH BABY STATED HE HAS BEEN FUSSY SINCE SHE NURSED HIM. DENIES NEEDS OR PAIN AT THIS TIME.
--- NOTE | 2019-04-04 07:00 | NUR ---
REPORT RECEIVED FROM Peter JUSTIN RN.
--- NOTE | 2019-04-04 08:00 | NUR ---
ASSESSMENT COMPLETE. SEE FLOWSHEET. IV D/C'D. CATHETER INTACT. PRESSURE APPLIED AND NO BLEEDING NOTED. BANDAGE APPLIED OVER SITE.
[2019-04-04 08:11] LABS: RAPID PLASMA REAGIN Non Reactive (Non Reactive)
[2019-04-04 08:15] VITALS: BP 114/73
--- NOTE | 2019-04-04 09:06 | NUR ---
Chavo Arenas 04/04/2019 S: Patient states is going great. latched immediately when she was in recovery. has been nursing on demand for every feeding. She did breastfeed her other two children. Denies questions or concerns about at this time. Verbally agrees to address all questions and concerns with nursing staff. O: Patient sitting up in bed, family member in room for support, infant in nursery. Praised for . Informed patient takes time, practice, and patience in the beginning. Explained normal feeding patterns. An exclusively breastfeed should nurse 8-12 times in 24 hours. How long each feeding will last can vary per ? It is normal for to want to nurse every 2-3 hours or sooner, this is normal. Explained supply and demand, breastmilk composition, benefits of skin to skin, infant feeding cues, positions, how to verify is latched correctly to the breast, and the importance of practicing responsive feeding to help with establishing your milk supply. Asked if any pain or discomfort when latches? Encouraged to continue to offer the breast for every feeding and ask for help as needed from nursery staff regarding . A: Patient appears confident with due to no questions or concerns. P: Continue to support exclusively during hospital visit. Alyssa Smith, CLC
--- NOTE | 2019-04-04 10:17 | NUR ---
VISITORS AT BEDSIDE. STATES PAIN LEVEL IS A 2 AFTER PERCOCET AND IS FEELING MUCH BETTER.
--- NOTE | 2019-04-04 12:40 | NUR ---
TDAP DOCUMENTED ON EMAR GIVEN IN LEFT DELTOID. TDAP ACTUALLY GIVEN IN RIGHT DELTOID.
--- NOTE | 2019-04-04 14:14 | NUR ---
PT REQUESTING PAIN MEDICATION. PERCOCET GIVEN.
[2019-04-04] MEDS ORDERED: PERCOCET 5-3251 TAB PO (14:26)
--- NOTE | 2019-04-04 14:45 | NUR ---
REVIEWED DISCHARGE INSTRUCTIONS WITH PATIENT. STATES UNDERSTANDING. PRESCRIPTION GIVEN.
--- NOTE | 2019-04-04 14:59 | NUR ---
PATIENT DISCHARGED HOME TO SELF CARE TO PRIVATE VEHICLE VIA WHEELCHAIR ACCOMPANIED BY HOSPITAL STAFF.
--- NOTE | 2019-04-04 15:00 | NUR ---
PT READY FOR DISCHARGE. DISCHARGED WITH , BOTH IN STABLE CONDITION, VIA WHEELCHAIR TO PRIVATE VEHICLE.
--- NOTE | 2019-04-05 15:13 | OP ---
PATIENT NAME: SOUTH OLIVARES MEDICAL RECORD: [id number] :89 LOCATION:[id number] ADMISSION DATE:04/02/19 SURGEON: SIMEON DE DIOS DO DATE OF OPERATION: 04/02/2019 PREOPERATIVE DIAGNOSES: Previous section, in labor. POSTOPERATIVE DIAGNOSES: Previous section, in labor. PRIMARY SURGEON: Simeon De Dios DO ANESTHESIA: Juvencio Pettit CRNA PROCEDURE: Repeat low transverse section via Pfannenstiel incision. FINDINGS: Male infant, weight 6 pounds 14 ounces, Apgars 8 and 9, delivered at 1951. Right fallopian tube with small cyst, otherwise normal-appearing bilateral fallopian tubes and bilateral ovaries. Uterine window noted. SPECIMENS: Placenta and cord. ESTIMATED BLOOD LOSS: 800 mL. IV fluids: 3700 cc. URINE OUTPUT: 600 cc clear urine. COMPLICATIONS: None. CONDITION: Stable. DESCRIPTION OF PROCEDURE: The risks, benefits, alternatives and indications of the procedure were discussed with the patient. She voiced understanding of the procedure and signed the consent. She was taken to the OR where spinal anesthesia was administered and found to be adequate. She was placed in the dorsal supine position with a leftward tilt. She was prepped and draped in the normal sterile fashion. A Pfannenstiel skin incision was made with a scalpel and carried down to the underlying layer of the fascia with the Bovie. The fascia was incised with the midline and extended laterally. The inferior aspect of the fascial incision was grasped with Jesus clamps and the rectus muscle was dissected off sharply. Attention was then turned to the superior aspect of the fascial incision. The rectus muscle was dissected off in a similar fashion. The rectus muscle was grasped with 2 Allises and down to the level of peritoneum with a scalpel. The peritoneum was identified and noted to be free of adherent bowel and entered bluntly. The peritoneum was further with gentle traction. There was a uterine window noted, and the bladder was noted to be adhesed to the uterus and so a bladder flap was created with Metzenbaum scissors. The uterus was incised in a transverse fashion in the lower uterine segment with a scalpel and the incision was extended with cephalad caudad traction. The 's head was brought to the incision. Nuchal cord times 1 was noted, which was reduced over the head prior to delivery of the body. The delivered without difficulty. Mouth and nose were suctioned. Cord was clamped and cut, and the infant was handed off to waiting pediatricians. The placenta was manually removed. The uterus was exteriorized and a moist lap was used to assure complete removal of placenta membranes. The OPERATIVE REPORT [id number] SOUTH OLIVARES hysterotomy was closed with 0 Vicryl in a running locked fashion with double layer closure with good hemostasis noted. There was a right fallopian tube cyst, which was removed with the Bovie and sent to pathology with good hemostasis. The posterior cul-de-sac was irrigated with warm sterile saline. The uterus, tubes and ovaries were returned back to the abdominal cavity and a moist laparotomy sponge was used to assure complete removal of blood clots and fluid from the abdominal cavity. The hysterotomy was reinspected and noted to be hemostatic. The rectus muscle was closed with 2-0 Monocryl in a running fashion with good hemostasis. The fascial incision was closed with 0 Vicryl in a running fashion with good hemostasis. The subcutaneous fat was closed with 2-0 plain in a running fashion with good hemostasis. The skin was closed in a subcuticular fashion with 3-0 Monocryl and Dermabond covering. All needle, lap, sponge, and instrument counts were correct times 2. The patient tolerated the procedure well, and she was taken to the recovery room in stable condition. TRANSINT:[id number] Voice Confirmation ID: [id number] DOCUMENT ID: [id number] SIMEON DE DIOS DO at 1513 CC: [id number] DICTATION DATE: 04/02/192040 HEEL LAYER: 04/03/19 0136 DIS IN 04/04/19 [facility] [address] [id number]
== END 2019-04-04 15:03 | disposition home or self-care (01) | DRG 788 ==
LOC: D.LDO 14:58 → D.LD 16:20
PROVIDERS: Student in an Organized Health Care Education/Training Program; ADMIT Obstetrics & Gynecology; ATTEND Obstetrics & Gynecology
PROC: 10D00Z1 Extraction of Products of Conception, Low, Open Approach (ICD-10-PCS; principal; 2019-04-02 18:42)
DX: O34.219 Maternal care for unspecified type scar from previous cesarean delivery (principal); Z3A.37 37 weeks gestation of pregnancy; Z37.0 Single live birth; Z87.891 Personal history of nicotine dependence; O69.81X0 Labor and delivery complicated by cord around neck, without compression, not applicable or unspecified; O34.83 Maternal care for other abnormalities of pelvic organs, third trimester; N94.89 Other specified conditions associated with female genital organs and menstrual cycle